=== PATIENT | male | born 1975 | race Two or more races ===

== ENCOUNTER 2021-12-08 21:02 | Emergency (ER) | payer MEDICAID ==
[~2021-12-08] VITALS: Ht 177.8 cm; Wt 90.7 kg
[2021-12-08 23:02] VITALS: BP 131/87
--- NOTE | 2021-12-08 23:10 | NUR ---
BIBS TO ER BED 6. AAOX4. NOT IN RESP DISTRESS. STEADY GAIT BUT AMBULATED WITH A LIMP. NOT IN RESP DISTRESS. CAME IN FOR L LEG TINGGLING, NUMBNESS AND BURNING SENSATION X 3 DAYS. PER PT, LAST TIME HE FELT LIKE THIS WAS WHEN HAD OSTEOMYELITIS BACK IN 2019. PT IS AFEBRILE. AWAITING MD FOR TORREY
--- NOTE | 2021-12-08 23:27 | NUR ---
PT REFUSED AL MD ORDERS AND WALKED OUT OF THE ER. MD WAS MADE AWARE
[2021-12-08] MEDS ORDERED: KETOROLAC TROMETHAMINE INJ 60 MG/2 ML VIAL IM ONE (23:30)
== END 2021-12-08 23:28 | disposition left against medical advice (07) ==
LOC: ER 21:06
DX: R20.0 Anesthesia of skin (principal); Z76.5 Malingerer [conscious simulation]; F12.90 Cannabis use, unspecified, uncomplicated; Z98.890 Other specified postprocedural states; Z60.2 Problems related to living alone

== ENCOUNTER 2022-01-27 23:30 | Emergency (ER) | payer MEDICARE, OTHER ==
[~2022-01-27] VITALS: Ht 177.8 cm; Wt 77.1 kg
[2022-01-27 23:35] VITALS: BP 145/80
[2022-01-28] MEDS ORDERED: IBUPROFEN 600 MG TABLET PO ONE
[2022-01-28] MEDS ORDERED: IBUPROFEN 600 MG TABLET ONE (00:16)
== END 2022-01-28 00:23 | disposition home or self-care (01) ==
LOC: ER 23:33
DX: G89.29 Other chronic pain (principal); M25.562 Pain in left knee; Z98.890 Other specified postprocedural states; F12.90 Cannabis use, unspecified, uncomplicated
CPT/HCPCS: 73564-TC